=== PATIENT | male | born 1950 | race African-American/Black ===

== ENCOUNTER 2019-02-07 12:05 | Emergency (ER) | payer BC, OTHER ==
[2019-02-07 12:16] VITALS: TEMP 97.9; BMI 30.2
[2019-02-07 14:31] LABS: EOS % 1.9 % (0-4.5); HEMATOCRIT 44.1 % (35.4-49); HEMOGLOBIN 14.6 GM/dL (11.7-16.9); LYMPH % 14.5 % (8-40); MCH 30.4 pg (25.7-33.7); MCHC 33.2 g/dl (32.0-35.9); MEAN CELL VOLUME 91.4 fl (80-96); MEAN PLT VOLUME 7.5 fl (7.5-11.1); MONO % 9.2 % (3.8-10.2); NEUT % 73.4 % (42.8-82.8); PLATELET COUNT 346 K/MM3 (134-434); RBC 4.82 M/mm3 (4.00-5.60); RDW 12.8 % (11.9-15.9); WHITE BLOOD COUNT 10.8 K/mm3 (4.0-10.0)
[2019-02-07 14:42] LABS: EPI CELLS 1.1 /HPF (0-5/HPF); HYALINE CASTS 6 /lpf (0-8); URINE APPEARANCE CLEAR; URINE BILIRUBIN NEGATIVE (NEGATIVE); URINE COLOR YELLOW; URINE GLUCOSE (UA) NEGATIVE (NEGATIVE); URINE KETONE TRACE (NEGATIVE); URINE LEUK ESTERASE NEGATIVE (NEGATIVE); URINE NITRITE NEGATIVE (NEGATIVE); URINE PROTEIN NEGATIVE (NEGATIVE); URINE RBC 2 /hpf (0-4); URINE UROBILINOGEN 0.2 mg/dL (0.2-1.0); URINE WBC 3 /hpf (0-5)
[2019-02-07 15:00] LABS: ALBUMIN 3.6 g/dl (3.4-5.0); BILIRUBIN,TOTAL 0.4 mg/dL (0.2-1); BLOOD UREA NITROGEN 11.5 mg/dL (7-18); CALCIUM 9.1 mg/dL (8.5-10.1); CREATININE 1.3 mg/dL (0.55-1.3); POTASSIUM 4.5 mmol/L (3.5-5.1); TOT PROT 7.8 g/dl (6.4-8.2)
--- NOTE | 2019-02-07 15:22 | PDOC ---
History of Present Illness - General Chief Complaint: Diarrhea Stated Complaint: DIARRHEA Time Seen by Provider: 02/07/19 13:37 History Source: Patient Exam Limitations: No Limitations - History of Present Illness Travel History: No Initial Comments: 02/07/19 15:06 68-year-old male presents to ED with intermittent diarrhea for the past 2 weeks without aggravating factors including activity or diet. Patient states has had mild intermittent lower abdominal cramping but denies any GI history including colitis, diverticulitis IBS. Patient denies recent travel recent illness fever, chills, nausea, abdominal distention, or change in urine pattern. Timing/Duration: reports: intermittent Quality: reports: mild, cramping Abdominal Pain Onset Location: reports: RLQ, LLQ Pain Radiation: reports: no radiation Aggravating Factors: improves with: None Alleviating Factors: improves with: None Past History - Travel Traveled outside of the country in the last 30 days: No Close contact w/someone who was outside of country & ill: No - Past Medical History Allergies/Adverse Reactions: Allergies Allergy/AdvReac Type Severity Reaction Status Date / Time No Known Allergies Allergy Verified 02/07/19 12:12 Home Medications: Ambulatory Orders NK [No Known Home Medication] 02/07/19 COPD: No - Surgical History Abdominal Surgery: Yes (hernia repair) - Suicide/Smoking/Psychosocial Hx Smoking History: Never smoked Patient Lives Alone: No Lives with/in: spouse/SO Review of Systems - Review of Systems Able to Perform ROS?: No Constitutional: No: Symptoms Reported HEENTM: No: Symptoms Reported Respiratory: No: Symptoms reported Cardiac (ROS): No: Symptoms Reported ABD/GI: Yes: Diarrhea, Abdominal cramping. No: Constipated, Nausea, Poor Appetite, Poor Fluid Intake, Vomiting : No: Symptoms Reported Musculoskeletal: No: Symptoms Reported Integumentary: No: Symptoms Reported Neurological: No: Symptoms reported Hematologic/Lymphatic: No: Symptoms Reported *Physical Exam - Vital Signs Last Vital Signs Temp Pulse Resp BP Pulse Ox 97.9 F 89 18 131/77 98 02/07/19 12:14 02/07/19 12:14 02/07/19 12:14 02/07/19 12:14 02/07/19 12:14 - Physical Exam General Appearance: Yes: Nourished, Appropriately Dressed. No: Apparent Distress HEENT: negative: Pale Conjunctivae Neck: positive: Normal Thyroid, Supple Respiratory/Chest: positive: Lungs Clear, Normal Breath Sounds. negative: Respiratory Distress, Accessory Muscle Use Cardiovascular: positive: Regular Rhythm, Regular Rate. negative: Murmur Gastrointestinal/Abdominal: positive: Soft. negative: Tenderness Musculoskeletal: negative: CVA Tenderness Extremity: positive: Normal Inspection Integumentary: positive: Normal Color, Warm, Moist Neurologic: positive: Motor Strength 5/5 (ambulatory) ED Treatment Course - LABORATORY CBC & Chemistry Diagram: 02/07/19 14:15 02/07/19 14:15 - ADDITIONAL ORDERS Additional order review: Laboratory Results 02/07/19 02/07/19 02/07/19 14:15 14:15 14:15 Sodium 139 Potassium 4.5 Chloride 108 H Carbon Dioxide 26 Anion Gap 5 L BUN 11.5 Creatinine 1.3 Est GFR (CKD-EPI)AfAm 64.98 Est GFR (CKD-EPI)NonAf 56.06 Random Glucose 93 Calcium 9.1 Magnesium 2.2 Total Bilirubin 0.4 AST 14 L ALT 15 Alkaline Phosphatase 73 Total Protein 7.8 Albumin 3.6 Urine Color Yellow Urine Appearance Clear Urine pH 5.0 Ur Specific [place] 1.023 Urine Protein Negative Urine Glucose (UA) Negative Urine Ketones Trace H Urine Blood Trace Urine Nitrite Negative Urine Bilirubin Negative Urine Urobilinogen 0.2 Ur Leukocyte Esterase Negative Urine WBC (Auto) 3 Urine RBC (Auto) 2 Urine Casts (Auto) 6 U Epithel Cells (Auto) 1.1 Urine Bacteria (Auto) 1.0 02/07/19 14:15 RBC 4.82 MCV 91.4 MCHC 33.2 RDW 12.8 MPV 7.5 Neutrophils % 73.4 Lymphocytes % 14.5 Monocytes % 9.2 Eosinophils % 1.9 Basophils % 1.0 - RADIOLOGY Radiology Studies Ordered: Category Date Time Status ABDOMEN & PELVIS CT WITH CONTR [CT] Stat CT Scan 02/07/19 13:39 Ordered Medical Decision Making - Medical Decision Making 02/07/19 15:38 Complaint: Intermittent diarrhea for the past 2 weeks fever, chills decreased urine output, weakness Exam: Vital signs stable, no abdominal tenderness no distention Plan: Labs, urine, and abdominal/pelvic CT with contrast. States last episode of diarrhea was this morning but will try to obtain stool specimen 02/07/19 18:18 Laboratory Tests 02/07/19 02/07/19 02/07/19 14:15 14:15 14:15 WBC 10.8 H Hgb 14.6 Hct 44.1 Absolute Neuts (auto) 7.9 Sodium 139 Potassium 4.5 Chloride 108 H Carbon Dioxide 26 Anion Gap 5 L BUN 11.5 Creatinine 1.3 Urine Protein Negative Urine Glucose (UA) Negative Urine Blood Trace Urine Nitrite Negative Urine Bilirubin Negative Ur Leukocyte Esterase Negative Urine WBC (Auto) 3 Urine RBC (Auto) 2 patient unable to give stool specimens. Patient CT shows a left inguinal hernia containing fat only. Otherwise mild colonic diverticulosis without definitive evidence of diverticulitis. Patient recommended to follow up with GI for possible colonoscopy *DC/Admit/Observation/Transfer Diagnosis at time of Disposition: Diarrhea - Discharge Dispostion Disposition: HOME Condition at time of disposition: Good - Referrals Referrals: Micah Simmons DO [Staff Physician] - - Patient Instructions Printed Discharge Instructions: DI for Diarrhea and Traveler's Diarrhea -- Adult Additional Instructions: Try to eat foods that are binding such as starchy foods potatoes rice breads and avoid Green leafy vegetables and things that cause loose stool. Return to ED if he develops severe abdominal pain, fever, or frequent diarrhea or bloody stools. - Post Discharge Activity
[2019-02-07 18:39] VITALS: BP 142/79; PULSE 82
== END 2019-02-07 18:42 | disposition home or self-care (01) ==
LOC: JER 12:05
DX: R19.7 Diarrhea, unspecified (principal)
CPT/HCPCS: 36415; 74177-TC; 80053; 81003; 83735; 85025; 99283-25

== ENCOUNTER 2021-02-01 10:00 | Emergency (ER) | payer OTHER, BC ==
[2021-02-01 10:10] VITALS: BP 144/93; PULSE 96; TEMP 98.1; BMI 29.9
[2021-02-01] MEDS ORDERED: NAPROXEN 500 MG TABLET PO ONE (10:55)
[2021-02-01] MEDS ORDERED: COLCHICINE 0.6 MG CAP PO ONE (10:55)
[2021-02-01] MEDS ORDERED: NAPROXEN 500 MG TABLET ONE (11:47)
== END 2021-02-01 12:44 | disposition home or self-care (01) ==
LOC: JER 10:00
DX: M25.532 Pain in left wrist (principal)
CPT/HCPCS: 73110-TC-LT-FY; 99283-25

== ENCOUNTER 2022-09-29 10:55 | Day surgery (SDC) | payer OTHER, BC ==
[~2022-09-29 10:55] MED LIST: SODIUM CHLORIDE 1,000 ML IV ONE
[2022-09-29] MEDS ORDERED: DEXAMETHASONE SODIUM PHOSPHATE 10 MG in SODIUM CHLORIDE 50 ML IVPB ONE (11:30)
[2022-09-29] MEDS ORDERED: PALONOSETRON HCL 0.25 MG/5 ML VIAL IVPUSH ONE (11:30)
[2022-09-29] MEDS ORDERED: FOSAPREPITANT DIMEGLUMINE 150 MG in SODIUM CHLORIDE 145 ML IVPB ONE (11:30)
[2022-09-29] MEDS ORDERED: MAGNESIUM SULFATE IV ONE ×2 (12:00→14:45)
[2022-09-29] MEDS ORDERED: MANNITOL IV ONE (12:00)
[2022-09-29] MEDS ORDERED: CISPLATIN IV ONE ×2 (12:00→14:45)
[2022-09-29] MEDS ORDERED: [UNRECOGNIZED DRUG - OTHER] IV ONE (12:00)
[2022-09-29] MEDS ORDERED: POTASSIUM CHLORIDE 10 MEQ, MAGNESIUM SULFATE 1 GM in SODIUM CHLORIDE 1,000 ML IVPB ONE (14:00)
[2022-09-29] MEDS ORDERED: [UNRECOGNIZED DRUG - OTHER] IV ONE (14:45)
[2022-09-29] MEDS ORDERED: POTASSIUM CHLORIDE IV ONE (14:45)
[2022-09-29] MEDS ORDERED: MANNITOL IVPB ONE ×2 (14:45)
[2022-09-29 15:03] LABS: BASO % 0.4 % (0-2.0); EOS % 2.6 % (0-4.5); HEMATOCRIT 32.1 % (35.4-49); HEMOGLOBIN 10.6 GM/dL (11.7-16.9); LYMPH % 13.3 % (8-40); MCH 28.7 pg (25.7-33.7); MCHC 32.9 g/dl (32.0-35.9); MEAN CELL VOLUME 87.1 fl (80-96); MEAN PLT VOLUME 9.6 fl (7.5-11.1); MONO % 6.6 % (3.8-10.2); NEUT % 77.1 % (42.8-82.8); PLATELET COUNT 215 10^3/uL (134-434); RBC 3.68 M/mm3 (4.00-5.60); RDW 12.5 % (11.9-15.9); WHITE BLOOD COUNT 8.2 K/mm3 (4.0-10.0)
[2022-09-29 16:09] LABS: CALCIUM 8.8 mg/dL (8.5-10.1)
[2022-09-29 16:10] LABS: ALBUMIN 3.1 g/dl (3.4-5.0); BLOOD UREA NITROGEN 20.4 mg/dL (7-18); MAGNESIUM 2.2 mg/dL (1.8-2.4)
[2022-09-29 16:13] LABS: CREATININE 0.8 mg/dL (0.55-1.3)
[2022-09-29 16:14] LABS: TOT PROT 6.8 g/dl (6.4-8.2)
[2022-09-29 16:15] LABS: BILIRUBIN,TOTAL 0.3 mg/dL (0.2-1)
[2022-09-29 16:52] VITALS: TEMP 98
[2022-09-29 19:42] VITALS: BP 140/73; PULSE 96; RESP 18
== END 2022-09-29 19:48 | disposition home or self-care (01) ==
LOC: JONCCHEMO 10:55
PROVIDERS: ATTEND Internal Medicine Hematology & Oncology
DX: Z51.11 Encounter for antineoplastic chemotherapy (principal); C13.9 Malignant neoplasm of hypopharynx, unspecified; Z87.891 Personal history of nicotine dependence
CPT/HCPCS: 36415; 80053; 83735; 85025; 96360; 96365; 96368; 96375; 96413; J1453; J2469

== ENCOUNTER 2022-09-30 11:30 | Day surgery (SDC) | payer OTHER, BC ==
[2022-09-30] MEDS ORDERED: SODIUM CHLORIDE 0.9%/KCL 20 MEQ/1,000 ML INFUS.BAG IV ONE (11:45)
[2022-09-30] MEDS ORDERED: MAGNESIUM 1GM/D5W - 1 GM/100 ML IVPB IVPB ONE (11:45)
[2022-09-30 16:22] VITALS: BP 120/62; PULSE 82; RESP 19; TEMP 98
== END 2022-09-30 15:00 | disposition home or self-care (01) ==
LOC: JONCCHEMO 11:30
PROVIDERS: ATTEND Internal Medicine Hematology & Oncology
PROC: 3E0337Z Introduction of Electrolytic and Water Balance Substance into Peripheral Vein, Percutaneous Approach (ICD-10-PCS; principal; 2022-09-30)
DX: C13.9 Malignant neoplasm of hypopharynx, unspecified (principal); Z76.89 Persons encountering health services in other specified circumstances
CPT/HCPCS: 96365; 96368

== ENCOUNTER 2022-10-01 11:45 | Day surgery (SDC) | payer OTHER, BC ==
[~2022-10-01 11:45] MED LIST changes: +MAGNESIUM 1GM/D5W - 1 GM/100 ML IVPB IVPB ONE; +SODIUM CHLORIDE 0.9%/KCL 20 MEQ/1,000 ML INFUS.BAG IV ONE; -SODIUM CHLORIDE 1,000 ML IV ONE
[2022-10-01 15:13] VITALS: PULSE 78; RESP 18; TEMP 98
[2022-10-01 15:21] VITALS: BP 113/60
== END 2022-10-01 14:15 | disposition home or self-care (01) ==
LOC: JONCCHEMO 11:45
PROVIDERS: ATTEND Internal Medicine Hematology & Oncology
PROC: 3E033GC Introduction of Other Therapeutic Substance into Peripheral Vein, Percutaneous Approach (ICD-10-PCS; principal; 2022-10-01)
DX: C13.9 Malignant neoplasm of hypopharynx, unspecified (principal); Z76.89 Persons encountering health services in other specified circumstances
CPT/HCPCS: 96365

== ENCOUNTER 2022-10-20 09:50 | Day surgery (SDC) | payer OTHER, BC ==
[~2022-10-20 09:50] MED LIST changes: -MAGNESIUM 1GM/D5W - 1 GM/100 ML IVPB IVPB ONE; -SODIUM CHLORIDE 0.9%/KCL 20 MEQ/1,000 ML INFUS.BAG IV ONE; +SODIUM CHLORIDE 1,000 ML IV ONE
[2022-10-20] MEDS ORDERED: PALONOSETRON HCL 0.25 MG/5 ML VIAL IVPUSH ONE (10:00)
[2022-10-20] MEDS ORDERED: FOSAPREPITANT DIMEGLUMINE 150 MG in SODIUM CHLORIDE 145 ML IVPB ONE (10:00)
[2022-10-20] MEDS ORDERED: DEXAMETHASONE SODIUM PHOSPHATE 10 MG in SODIUM CHLORIDE 50 ML IVPB ONE (10:00)
[2022-10-20] MEDS ORDERED: MAGNESIUM SULFATE IV ONE (10:30)
[2022-10-20] MEDS ORDERED: [UNRECOGNIZED DRUG - OTHER] IV ONE (10:30)
[2022-10-20] MEDS ORDERED: MANNITOL IV ONE (10:30)
[2022-10-20] MEDS ORDERED: CISPLATIN IV ONE (10:30)
[2022-10-20 11:04] LABS: BASO % 0.5 % (0-2.0); EOS % 2.8 % (0-4.5); HEMATOCRIT 31.6 % (35.4-49); HEMOGLOBIN 10.7 GM/dL (11.7-16.9); LYMPH % 11.9 % (8-40); MCH 29.8 pg (25.7-33.7); MCHC 33.9 g/dl (32.0-35.9); MEAN PLT VOLUME 8.1 fl (7.5-11.1); MONO % 15.2 % (3.8-10.2); NEUT % 69.6 % (42.8-82.8); PLATELET COUNT 322 10^3/uL (134-434); RBC 3.59 M/mm3 (4.00-5.60); RDW 13.1 % (11.9-15.9); WHITE BLOOD COUNT 3.1 K/mm3 (4.0-10.0)
[2022-10-20] MEDS ORDERED: POTASSIUM CHLORIDE 10 MEQ, MAGNESIUM SULFATE 1 GM in SODIUM CHLORIDE 1,000 ML IVPB ONE (11:30)
[2022-10-20 11:34] LABS: CALCIUM 9.6 mg/dL (8.5-10.1)
[2022-10-20 11:35] LABS: ALBUMIN 3.6 g/dl (3.4-5.0); BLOOD UREA NITROGEN 15.9 mg/dL (7-18); MAGNESIUM 2.1 mg/dL (1.8-2.4)
[2022-10-20 11:37] LABS: BILIRUBIN,DIRECT 0.1 mg/dL (0.0-0.2)
[2022-10-20 11:38] LABS: CREATININE 0.9 mg/dL (0.55-1.3)
[2022-10-20 11:39] LABS: BILIRUBIN,TOTAL 0.3 mg/dL (0.2-1); TOT PROT 7.6 g/dl (6.4-8.2)
[2022-10-20 17:42] VITALS: TEMP 98.5
[2022-10-20 17:54] VITALS: BP 138/76; PULSE 55; RESP 18
== END 2022-10-20 17:57 | disposition home or self-care (01) ==
LOC: JONCCHEMO 09:50
PROVIDERS: ATTEND Internal Medicine Hematology & Oncology
DX: Z51.11 Encounter for antineoplastic chemotherapy (principal); C13.9 Malignant neoplasm of hypopharynx, unspecified
CPT/HCPCS: 36415; 80048; 80076; 83735; 85025; 96361; 96367; 96375; 96413; J1453; J2469

== ENCOUNTER 2022-10-21 09:34 | Day surgery (SDC) | payer OTHER, BC ==
[2022-10-21] MEDS ORDERED: SODIUM CHLORIDE 0.9%/KCL 20 MEQ/1,000 ML INFUS.BAG IV ONE (10:00)
[2022-10-21] MEDS ORDERED: MAGNESIUM 1GM/D5W - 1 GM/100 ML IVPB IVPB ONE (10:00)
[2022-10-21 16:20] VITALS: BP 119/61; PULSE 87; RESP 19; TEMP 98.5
== END 2022-10-21 11:00 | disposition home or self-care (01) ==
LOC: JONCCHEMO 09:34
PROVIDERS: ATTEND Internal Medicine Hematology & Oncology
PROC: 3E033GC Introduction of Other Therapeutic Substance into Peripheral Vein, Percutaneous Approach (ICD-10-PCS; principal; 2022-10-21)
DX: C13.9 Malignant neoplasm of hypopharynx, unspecified (principal); Z76.89 Persons encountering health services in other specified circumstances
CPT/HCPCS: 96365

== ENCOUNTER 2022-10-22 10:00 | Day surgery (SDC) | payer OTHER, BC ==
[~2022-10-22 10:00] MED LIST changes: +MAGNESIUM 1GM/D5W - 1 GM/100 ML IVPB IVPB ONE; +SODIUM CHLORIDE 0.9%/KCL 20 MEQ/1,000 ML INFUS.BAG IV ONE; -SODIUM CHLORIDE 1,000 ML IV ONE
[2022-10-22 16:20] VITALS: RESP 20; TEMP 98.1
[2022-10-22 16:24] VITALS: BP 118/69; PULSE 74
== END 2022-10-22 12:45 | disposition home or self-care (01) ==
LOC: JONCCHEMO 10:00
PROVIDERS: ATTEND Internal Medicine Hematology & Oncology
PROC: 02B Heart and Great Vessels, Excision (ICD-10-PCS; principal; 2022-10-22)
DX: C13.9 Malignant neoplasm of hypopharynx, unspecified (principal); Z76.89 Persons encountering health services in other specified circumstances
CPT/HCPCS: 96361; 96365

== ENCOUNTER 2022-11-05 11:34 | Day surgery (SDC) | payer OTHER, BC ==
[~2022-11-05 11:34] MED LIST changes: +DEXAMETHASONE SOD PHOSPHATE 4 MG/1 ML VIAL IVPB ONE; +ONDANSETRON 4 MG/2 ML VIAL IVPB ONE; -SODIUM CHLORIDE 0.9%/KCL 20 MEQ/1,000 ML INFUS.BAG IV ONE
[2022-11-05 12:23] LABS: BASO % 0.4 % (0-2.0); HEMATOCRIT 29.5 % (35.4-49); HEMOGLOBIN 10.1 GM/dL (11.7-16.9); LYMPH % 9.9 % (8-40); MCHC 34.3 g/dl (32.0-35.9); MEAN CELL VOLUME 87.4 fl (80-96); MEAN PLT VOLUME 7.7 fl (7.5-11.1); NEUT % 81.7 % (42.8-82.8); PLATELET COUNT 182 10^3/uL (134-434); RBC 3.38 M/mm3 (4.00-5.60); RDW 13.6 % (11.9-15.9); WHITE BLOOD COUNT 3.6 K/mm3 (4.0-10.0)
[2022-11-05] MEDS ORDERED: NORMAL SALINE IV ONE (12:30)
[2022-11-05] MEDS ORDERED: DEXTROSE 5% IV ONE (12:30)
[2022-11-05 13:26] LABS: MAGNESIUM 2.2 mg/dL (1.8-2.4)
[2022-11-05 13:28] LABS: ALBUMIN 3.6 g/dl (3.4-5.0); BLOOD UREA NITROGEN 18.2 mg/dL (7-18); CALCIUM 9.2 mg/dL (8.5-10.1)
[2022-11-05 13:30] LABS: BILIRUBIN,DIRECT 0.1 mg/dL (0.0-0.2)
[2022-11-05 13:31] LABS: TOT PROT 7.8 g/dl (6.4-8.2)
[2022-11-05 13:33] LABS: BILIRUBIN,TOTAL 0.3 mg/dL (0.2-1)
[2022-11-05] MEDS ORDERED: ACETAMINOPHEN 650 MG/20.3 ML ORAL SOLUTION (CUPS) PO ONE (16:29)
[2022-11-05 17:19] VITALS: TEMP 98.6
[2022-11-05 17:30] VITALS: BP 141/76; PULSE 89; RESP 18
== END 2022-11-05 16:20 | disposition home or self-care (01) ==
LOC: JONCNONCHE 11:34
PROVIDERS: ATTEND Internal Medicine Hematology & Oncology
PROC: 3E033GC Introduction of Other Therapeutic Substance into Peripheral Vein, Percutaneous Approach (ICD-10-PCS; principal; 2022-11-05)
DX: C13.9 Malignant neoplasm of hypopharynx, unspecified (principal); Z76.89 Persons encountering health services in other specified circumstances
CPT/HCPCS: 36415; 80048; 80076; 82150; 83690; 83735; 85025; 96361; 96365

== ENCOUNTER 2022-11-09 21:20 | Inpatient (IN) | payer OTHER, BC ==
[2022-11-09 21:28] VITALS: BMI 29.5
[2022-11-09] MEDS ORDERED: SODIUM CHLORIDE 2,722 ML IV ONE (21:45)
[2022-11-09] MEDS ORDERED: ACETAMINOPHEN 1000 MG/100 ML BAG IVPB ONE (21:47)
[2022-11-09 22:32] LABS: VENOUS BASE EXCESS 2.2 mmol/L (-2-2); VENOUS PCO2 41.9 mmHg (38-52); VENOUS PH 7.424 (7.310-7.410)
[2022-11-09] MEDS ORDERED: ACETAMINOPHEN INJECTION 100 ML IVPB ONE (22:32)
[2022-11-09 22:45] LABS: BASO % 0.3 % (0-2.0); EOS % 3.1 % (0-4.5); HEMATOCRIT 26.4 % (35.4-49); HEMOGLOBIN 9.2 GM/dL (11.7-16.9); INR 1.14 (0.83-1.09); LYMPH % 17.4 % (8-40); MCH 30.3 pg (25.7-33.7); MCHC 34.9 g/dl (32.0-35.9); MEAN CELL VOLUME 86.8 fl (80-96); MEAN PLT VOLUME 7.2 fl (7.5-11.1); MONO % 23.8 % (3.8-10.2); NEUT % 55.4 % (42.8-82.8); PLATELET COUNT 264 10^3/uL (134-434); PROTHROMBIN TIME (PATIENT) 13.2 SEC (9.7-13.0); RBC 3.05 M/mm3 (4.00-5.60); RDW 14.2 % (11.9-15.9)
[2022-11-09 22:47] LABS: ACTIVATED PTT 29.5 SECONDS (25.2-36.5)
[2022-11-09 22:49] LABS: WHITE BLOOD COUNT 0.8 K/mm3 (4.0-10.0)
[2022-11-09 22:54] LABS: CHLORIDE 96 mmol/L (98-107); POTASSIUM 4.5 mmol/L (3.5-5.1); SODIUM 131 mmol/L (136-145)
[2022-11-09 22:56] LABS: ALBUMIN 3.3 g/dl (3.4-5.0); ANION GAP 6 MMOL/L (8-16); CALCIUM 8.5 mg/dL (8.5-10.1); CO2 28 mmol/L (21-32); GLUCOSE,RANDOM 148 mg/dL (74-106)
[2022-11-09 22:59] LABS: CREATININE 0.9 mg/dL (0.55-1.3); SGOT/AST 17 U/L (15-37)
[2022-11-09 23:00] LABS: SGPT/ALT 24 U/L (13-61)
[2022-11-09 23:01] LABS: BILIRUBIN,TOTAL 0.3 mg/dL (0.2-1); TOT PROT 7.3 g/dl (6.4-8.2)
[2022-11-09 23:02] LABS: ALK PHOS 55 U/L (45-117)
[2022-11-09] MEDS ORDERED: PIPERACILLIN/TAZOB 3.375 GM 3.375 GM in DEXTROSE 5%-WATER - 50 ML IVPB ONE (23:08)
[2022-11-09] MEDS ORDERED: VANCOMYCIN 1 GM in D5W (PRE-DOCKED) 1,000 MG/250 ML (RESTRICTED TO ID ONLY IVPB ONE (23:08)
[2022-11-09] MEDS ORDERED: PIPERACILLIN/TAZOB 3.375 GM 3.375 GM/50 ML BAG IVPB ONE (23:32)
[2022-11-09 23:56] LABS: PH,URINE 7.5 (5.0-8.0); URINE APPEARANCE CLEAR; URINE BILIRUBIN NEGATIVE (NEGATIVE); URINE COLOR YELLOW; URINE GLUCOSE (UA) NEGATIVE (NEGATIVE); URINE KETONE NEGATIVE (NEGATIVE); URINE LEUK ESTERASE NEGATIVE (NEGATIVE); URINE NITRITE NEGATIVE (NEGATIVE); URINE PROTEIN NEGATIVE (NEGATIVE); URINE UROBILINOGEN 0.2 mg/dL (0.2-1.0)
[2022-11-10] MEDS ORDERED: ONDANSETRON 4 MG/2 ML VIAL IVPUSH PRN (00:04)
[2022-11-10 01:06] LABS: HEMATOCRIT 24.7 % (35.4-49); HEMOGLOBIN 8.4 GM/dL (11.7-16.9); MCH 29.9 pg (25.7-33.7); MCHC 34.2 g/dl (32.0-35.9); MEAN CELL VOLUME 87.4 fl (80-96); MEAN PLT VOLUME 7.3 fl (7.5-11.1); PLATELET COUNT 245 10^3/uL (134-434); RBC 2.83 M/mm3 (4.00-5.60)
[2022-11-10] MEDS: SODIUM CHLORIDE 1,000 ML IV SCH (01:16)
[2022-11-10] MEDS ORDERED: VANCOMYCIN/WATER FOR INJ (PEG) 1,000 MG/200 ML BAG IVPB ONE (01:19)
[2022-11-10] MEDS ORDERED: PIPERACILLIN/TAZOB 3.375 GM 3.375 GM in DEXTROSE 5%-WATER - 50 ML IVPB SCH (02:00)
[2022-11-10 02:59] LABS: ANISOCYTOSIS 1+; MACROCYTOSIS 0
[2022-11-10 06:37] LABS: POTASSIUM 4.7 mmol/L (3.5-5.1)
[2022-11-10] MEDS ORDERED: ACETAMINOPHEN INJECTION 100 ML IVPB ONE (06:38)
[2022-11-10 06:39] LABS: ALBUMIN 2.8 g/dl (3.4-5.0); BLOOD UREA NITROGEN 12.9 mg/dL (7-18); CALCIUM 8.3 mg/dL (8.5-10.1)
[2022-11-10 06:42] LABS: CREATININE 0.9 mg/dL (0.55-1.3); URIC ACID 2.8 mg/dL (2.6-7.2)
[2022-11-10] MEDS: ACETAMINOPHEN 1000 MG/100 ML BAG IVPB PRN (06:42)
[2022-11-10 06:44] LABS: BILIRUBIN,TOTAL 0.4 mg/dL (0.2-1); TOT PROT 6.6 g/dl (6.4-8.2)
[2022-11-10 07:16] LABS: HEMATOCRIT 25.2 % (35.4-49); HEMOGLOBIN 8.6 GM/dL (11.7-16.9); MCH 29.8 pg (25.7-33.7); MCHC 34.1 g/dl (32.0-35.9); MEAN CELL VOLUME 87.5 fl (80-96); MEAN PLT VOLUME 7.4 fl (7.5-11.1); PLATELET COUNT 250 10^3/uL (134-434); RBC 2.89 M/mm3 (4.00-5.60); RDW 14.7 % (11.9-15.9); RETICULOCYTES 1.27 % (0.5-1.5)
[2022-11-10] MEDS ORDERED: PIPERACILLIN/TAZOB 4.5 GM 4.5 GM/100 ML BAG IVPB ONE (07:48)
[2022-11-10] MEDS ORDERED: PIPERACILLIN/TAZOB 4.5 GM 4.5 GM in DEXTROSE 5%-WATER 100 ML IVPB SCH (08:00)
[2022-11-10 08:48] LABS: ANISOCYTOSIS 2+; MACROCYTOSIS 0
[2022-11-10] MEDS ORDERED: ENOXAPARIN NA (PORCINE) 40 MG/0.4 ML DISP.SYRIN SQ SCH (10:00)
[2022-11-10] MEDS: PIPERACILLIN/TAZOB 4.5 GM 4.5 GM in DEXTROSE 5%-WATER 100 ML IVPB SCH (17:26)
[2022-11-10] MEDS: VANCOMYCIN/WATER FOR INJ (PEG) 1,000 MG/200 ML BAG IVPB SCH (17:26)
[2022-11-11] MEDS: SODIUM CHLORIDE 1,000 ML IV SCH (00:03)
[2022-11-11] MEDS: PIPERACILLIN/TAZOB 4.5 GM 4.5 GM in DEXTROSE 5%-WATER 100 ML IVPB SCH ×3 (01:33→17:08)
[2022-11-11] MEDS: VANCOMYCIN/WATER FOR INJ (PEG) 1,000 MG/200 ML BAG IVPB SCH ×2 (05:31→17:43)
[2022-11-11 10:01] LABS: HEMATOCRIT 25.5 % (35.4-49); HEMOGLOBIN 8.7 GM/dL (11.7-16.9); MCH 29.8 pg (25.7-33.7); MCHC 34.1 g/dl (32.0-35.9); MEAN CELL VOLUME 87.5 fl (80-96); MEAN PLT VOLUME 7.3 fl (7.5-11.1); PLATELET COUNT 284 10^3/uL (134-434); RBC 2.91 M/mm3 (4.00-5.60); RDW 14.6 % (11.9-15.9)
[2022-11-11 10:11] LABS: WHITE BLOOD COUNT 1.4 K/mm3 (4.0-10.0)
[2022-11-11 10:14] LABS: POTASSIUM 4.4 mmol/L (3.5-5.1)
[2022-11-11 10:15] LABS: CALCIUM 8.5 mg/dL (8.5-10.1)
[2022-11-11 10:16] LABS: BLOOD UREA NITROGEN 12.3 mg/dL (7-18); MAGNESIUM 1.9 mg/dL (1.8-2.4)
[2022-11-11 10:19] LABS: CREATININE 0.8 mg/dL (0.55-1.3)
[2022-11-11 10:34] LABS: ANISOCYTOSIS 2+; MACROCYTOSIS 0
[2022-11-11] MEDS ORDERED: ONDANSETRON HCL 4 MG/5 ML BULK BOTTLE PO PRN (16:05)
[2022-11-11] MEDS ORDERED: TRAMADOL HCL PO SCH (18:00)
[2022-11-12] MEDS: PIPERACILLIN/TAZOB 4.5 GM 4.5 GM in DEXTROSE 5%-WATER 100 ML IVPB SCH ×3 (01:20→17:12)
[2022-11-12] MEDS: VANCOMYCIN/WATER FOR INJ (PEG) 1,000 MG/200 ML BAG IVPB SCH ×2 (04:54→17:12)
[2022-11-12 05:47] VITALS: RESP 18
[2022-11-12 08:55] LABS: HEMATOCRIT 26.8 % (35.4-49); HEMOGLOBIN 9.1 GM/dL (11.7-16.9); MCH 29.9 pg (25.7-33.7); MCHC 34.1 g/dl (32.0-35.9); MEAN CELL VOLUME 87.8 fl (80-96); MEAN PLT VOLUME 7.1 fl (7.5-11.1); PLATELET COUNT 323 10^3/uL (134-434); RBC 3.05 M/mm3 (4.00-5.60); RDW 15.2 % (11.9-15.9)
[2022-11-12 09:12] LABS: WHITE BLOOD COUNT 1.4 K/mm3 (4.0-10.0)
[2022-11-12 09:14] LABS: POTASSIUM 4.5 mmol/L (3.5-5.1)
[2022-11-12 09:16] LABS: BLOOD UREA NITROGEN 17.4 mg/dL (7-18)
[2022-11-12 09:19] LABS: CREATININE 0.9 mg/dL (0.55-1.3); PHOSPHOROUS 5.1 mg/dL (2.5-4.9)
[2022-11-12] MEDS: MAGNESIUM OXIDE 400 MG TABLET (FP) PO SCH (10:27)
[2022-11-12] MEDS: ACETAMINOPHEN 1000 MG/100 ML BAG IVPB PRN (11:42)
[2022-11-12] MEDS ORDERED: PHENOL 177 ML SPRAY BOTTLE MM PRN (16:41)
[2022-11-12] MEDS ORDERED: traMADol HCL 50 MG TABLET PEG PRN (16:41)
[2022-11-13] MEDS: PIPERACILLIN/TAZOB 4.5 GM 4.5 GM in DEXTROSE 5%-WATER 100 ML IVPB SCH ×2 (01:53→10:25)
[2022-11-13] MEDS: VANCOMYCIN/WATER FOR INJ (PEG) 1,000 MG/200 ML BAG IVPB SCH (05:07)
[2022-11-13 08:52] LABS: BASO % 0.2 % (0-2.0); HEMATOCRIT 27.1 % (35.4-49); HEMOGLOBIN 9.6 GM/dL (11.7-16.9); MCH 31.1 pg (25.7-33.7); MCHC 35.4 g/dl (32.0-35.9); MEAN CELL VOLUME 87.7 fl (80-96); MEAN PLT VOLUME 7.8 fl (7.5-11.1); MONO % 12.1 % (3.8-10.2); NEUT % 68.7 % (42.8-82.8); PLATELET COUNT 359 10^3/uL (134-434); RBC 3.09 M/mm3 (4.00-5.60); RDW 15.3 % (11.9-15.9); WHITE BLOOD COUNT 2.1 K/mm3 (4.0-10.0)
[2022-11-13 09:15] LABS: POTASSIUM 4.7 mmol/L (3.5-5.1)
[2022-11-13 09:20] LABS: BLOOD UREA NITROGEN 21.2 mg/dL (7-18); CALCIUM 8.8 mg/dL (8.5-10.1)
[2022-11-13 09:23] LABS: CREATININE 0.9 mg/dL (0.55-1.3); PHOSPHOROUS 4.9 mg/dL (2.5-4.9)
[2022-11-13] MEDS: MAGNESIUM OXIDE 400 MG TABLET (FP) PO SCH (10:25)
[2022-11-13] MEDS: ENOXAPARIN NA (PORCINE) 40 MG/0.4 ML DISP.SYRIN SQ SCH (16:27)
[2022-11-14 05:42] VITALS: BP 118/55; PULSE 84; TEMP 98
[2022-11-14 09:46] LABS: BASO % 0.2 % (0-2.0); HEMATOCRIT 29.2 % (35.4-49); HEMOGLOBIN 9.8 GM/dL (11.7-16.9); LYMPH % 14.2 % (8-40); MCH 29.8 pg (25.7-33.7); MCHC 33.7 g/dl (32.0-35.9); MEAN CELL VOLUME 88.5 fl (80-96); MONO % 10.6 % (3.8-10.2); PLATELET COUNT 390 10^3/uL (134-434); RDW 15.7 % (11.9-15.9); WHITE BLOOD COUNT 2.3 K/mm3 (4.0-10.0)
[2022-11-14] MEDS: ENOXAPARIN NA (PORCINE) 40 MG/0.4 ML DISP.SYRIN SQ SCH (10:05)
[2022-11-14] MEDS: MAGNESIUM OXIDE 400 MG TABLET (FP) PO SCH (10:05)
[2022-11-14 10:08] LABS: POTASSIUM 4.6 mmol/L (3.5-5.1)
[2022-11-14 10:11] LABS: CALCIUM 9.4 mg/dL (8.5-10.1)
[2022-11-14 10:12] LABS: BLOOD UREA NITROGEN 21.6 mg/dL (7-18); MAGNESIUM 2.2 mg/dL (1.8-2.4)
== END 2022-11-14 14:09 | disposition home or self-care (01) | DRG 871 ==
LOC: JER 21:20 → JERBED 23:09 → J6S 11-10 16:28
PROVIDERS: ADMIT Internal Medicine; ATTEND Internal Medicine
DX: A41.9 Sepsis, unspecified organism (principal); J18.9 Pneumonia, unspecified organism; R04.2 Hemoptysis; K92.0 Hematemesis; D70.3 Neutropenia due to infection; C12 Malignant neoplasm of pyriform sinus; Z93.1 Gastrostomy status; R13.10 Dysphagia, unspecified
CPT/HCPCS: 0241U-QW; 36415; 71045-TC-FY; 71260-TC; 74177-TC; 80048; 80053; 81003; 82550; 82553; 82728; 82803; 83036; 83540; 83550; 83605; 83735; 84100; 84484; 84550; 85025; 85027; 85045; 85610; 85651; 85730; 86140; 86850; 86900; 86901; 87040; 87070; 87081; 87086; 87205; 87799; 87899; 93005; 93010; 99285-25; G0480; Q9967

== ENCOUNTER 2022-11-19 09:58 | Day surgery (SDC) | payer OTHER, BC ==
[~2022-11-19 09:58] MED LIST changes: -DEXAMETHASONE SOD PHOSPHATE 4 MG/1 ML VIAL IVPB ONE; -MAGNESIUM 1GM/D5W - 1 GM/100 ML IVPB IVPB ONE; -ONDANSETRON 4 MG/2 ML VIAL IVPB ONE; +SODIUM CHLORIDE 500 ML IV ONE
[2022-11-19] MEDS ORDERED: CISPLATIN IV ONE ×2 (10:15→11:00)
[2022-11-19] MEDS ORDERED: [UNRECOGNIZED DRUG - OTHER] IV ONE (10:15)
[2022-11-19] MEDS ORDERED: MAGNESIUM SULFATE IV ONE ×2 (10:15→11:00)
[2022-11-19] MEDS ORDERED: MANNITOL IV ONE ×2 (10:15→11:00)
[2022-11-19] MEDS ORDERED: DEXAMETHASONE SODIUM PHOSPHATE 10 MG in SODIUM CHLORIDE 50 ML IVPB ONE (10:30)
[2022-11-19] MEDS ORDERED: FOSAPREPITANT DIMEGLUMINE 150 MG in SODIUM CHLORIDE 145 ML IVPB ONE (10:30)
[2022-11-19] MEDS ORDERED: PALONOSETRON HCL 0.25 MG/5 ML VIAL IVPUSH ONE (10:30)
[2022-11-19] MEDS ORDERED: [UNRECOGNIZED DRUG - OTHER] IV ONE (11:00)
[2022-11-19] MEDS ORDERED: MAGNESIUM 1GM/D5W - 1 GM/100 ML IVPB IVPB ONE (12:00)
[2022-11-19] MEDS ORDERED: SODIUM CHLORIDE 750 ML IV ONE (12:00)
[2022-11-19 17:44] VITALS: BP 113/64; PULSE 78; RESP 20; TEMP 98.4
== END 2022-11-19 16:30 | disposition home or self-care (01) ==
LOC: JONCCHEMO 09:58 → J7W 10:03 → JONCCHEMO 16:30
PROVIDERS: ATTEND Internal Medicine Hematology & Oncology
DX: Z51.11 Encounter for antineoplastic chemotherapy (principal); C13.9 Malignant neoplasm of hypopharynx, unspecified
CPT/HCPCS: 96367; 96375; 96413; J1453; J2469

== ENCOUNTER 2022-11-20 10:00 | Day surgery (SDC) | payer OTHER, BC ==
[~2022-11-20 10:00] MED LIST changes: +MAGNESIUM 1GM/D5W - 1 GM/100 ML IVPB IVPB ONE; +SODIUM CHLORIDE 1,000 ML IV ONE; -SODIUM CHLORIDE 500 ML IV ONE
[2022-11-20 17:30] VITALS: BP 121/65; PULSE 79; RESP 18; TEMP 98.1
== END 2022-11-20 13:00 | disposition home or self-care (01) ==
LOC: JONCCHEMO 10:00
PROVIDERS: ATTEND Internal Medicine Hematology & Oncology
PROC: 3E033GC Introduction of Other Therapeutic Substance into Peripheral Vein, Percutaneous Approach (ICD-10-PCS; principal; 2022-11-20)
DX: C13.9 Malignant neoplasm of hypopharynx, unspecified (principal); Z76.89 Persons encountering health services in other specified circumstances
CPT/HCPCS: 96365

== ENCOUNTER 2022-11-21 10:19 | Day surgery (SDC) | payer OTHER, BC ==
[~2022-11-21 10:19] MED LIST changes: +SODIUM CHLORIDE 0.9%/KCL 20 MEQ/1,000 ML INFUS.BAG IV ONE; -SODIUM CHLORIDE 1,000 ML IV ONE; +TBO-FILGRASTIM 480 MCG/0.8 ML DISP.SYRIN SQ ONE
[2022-11-21 17:25] VITALS: RESP 18; TEMP 98.3
[2022-11-21 17:28] VITALS: BP 123/72; PULSE 70
== END 2022-11-21 13:20 | disposition home or self-care (01) ==
LOC: JONCCHEMO 10:19 → J7W 10:20 → JONCCHEMO 13:20
PROVIDERS: ATTEND Internal Medicine Hematology & Oncology
PROC: 3E033GC Introduction of Other Therapeutic Substance into Peripheral Vein, Percutaneous Approach (ICD-10-PCS; principal; 2022-11-21)
PROC: 3E013GC Introduction of Other Therapeutic Substance into Subcutaneous Tissue, Percutaneous Approach (ICD-10-PCS; 2022-11-21)
DX: C13.9 Malignant neoplasm of hypopharynx, unspecified (principal); Z76.89 Persons encountering health services in other specified circumstances
CPT/HCPCS: 96365; 96372; J1447

== ENCOUNTER 2022-11-26 14:00 | Day surgery (SDC) | payer OTHER, BC ==
[~2022-11-26 14:00] MED LIST changes: +D5 NS IV ONE; +D5-NS + 20 MEQ KCL - 20 MEQ/1,000 ML INFUS.BAG IV ONE; +DEXAMETHASONE SODIUM PHOSPHATE 4 MG, ONDANSETRON INJECTION 8 MG in SODIUM CHLORIDE 100 ML IVPB ONE; +KCL IV ONE; +LOPERAMIDE HCL 1 MG/5 ML UNIT DOSE CUP PEG ONE; -MAGNESIUM 1GM/D5W - 1 GM/100 ML IVPB IVPB ONE; +MAGNESIUM SULFATE IN WATER 2 GM/50 ML IVPB IVPB ONE; -SODIUM CHLORIDE 0.9%/KCL 20 MEQ/1,000 ML INFUS.BAG IV ONE; -TBO-FILGRASTIM 480 MCG/0.8 ML DISP.SYRIN SQ ONE
[2022-11-26] MEDS ORDERED: DEXTROSE 5%-NORMAL SALINE 500 ML IV ONE (15:00)
[2022-11-26 15:05] LABS: HEMATOCRIT 25.7 % (35.4-49); MCH 30.8 pg (25.7-33.7); MCHC 35.1 g/dl (32.0-35.9); MEAN CELL VOLUME 87.9 fl (80-96); MEAN PLT VOLUME 8.6 fl (7.5-11.1); PLATELET COUNT 306 10^3/uL (134-434); RBC 2.92 M/mm3 (4.00-5.60); RDW 17.5 % (11.9-15.9); WHITE BLOOD COUNT 8.3 K/mm3 (4.0-10.0)
[2022-11-26 15:31] LABS: POTASSIUM 4.4 mmol/L (3.5-5.1)
[2022-11-26 15:33] LABS: CALCIUM 8.9 mg/dL (8.5-10.1)
[2022-11-26 15:34] LABS: ALBUMIN 3.3 g/dl (3.4-5.0); BLOOD UREA NITROGEN 18.3 mg/dL (7-18); MAGNESIUM 1.9 mg/dL (1.8-2.4)
[2022-11-26 15:36] LABS: BILIRUBIN,DIRECT 0.1 mg/dL (0.0-0.2)
[2022-11-26 15:37] LABS: CREATININE 1.2 mg/dL (0.55-1.3)
[2022-11-26 15:38] LABS: BILIRUBIN,TOTAL 0.3 mg/dL (0.2-1); TOT PROT 6.8 g/dl (6.4-8.2)
[2022-11-26 15:58] LABS: ANISOCYTOSIS 2+; MACROCYTOSIS 0
[2022-11-26 17:55] VITALS: BP 119/66; PULSE 72; RESP 18; TEMP 99
== END 2022-11-26 17:45 | disposition home or self-care (01) ==
LOC: JONCNONCHE 14:00
PROVIDERS: ATTEND Internal Medicine Hematology & Oncology
PROC: 3E0T3GC Introduction of Other Therapeutic Substance into Peripheral Nerves and Plexi, Percutaneous Approach (ICD-10-PCS; principal; 2022-11-26)
DX: C13.9 Malignant neoplasm of hypopharynx, unspecified (principal); Z76.89 Persons encountering health services in other specified circumstances
CPT/HCPCS: 36415; 80048; 80076; 83735; 85025; 96365; 96366; 96368; J2405

== ENCOUNTER 2023-07-15 23:29 | Emergency (ER) | payer OTHER, BC ==
[2023-07-15 23:45] VITALS: BMI 22.6
[2023-07-15] MEDS ORDERED: SODIUM CHLORIDE 0.9% 500 ML INFUS.BAG IV ONE (23:49)
[2023-07-16] MEDS ORDERED: NOREPINEPHRINE BITARTRATE 4 MG/4 ML ML IV ONE (00:39)
[2023-07-16 00:55] LABS: INR 1.26 (0.83-1.09); PROTHROMBIN TIME (PATIENT) 14.6 SEC (9.7-13.0)
[2023-07-16 00:58] LABS: ACTIVATED PTT 29.3 SECONDS (25.2-36.5)
[2023-07-16] MEDS ORDERED: NOREPINEPHRINE BITARTRATE 4,000 MCG in DEXTROSE 5%-WATER - 496 ML IV SCH (01:00)
[2023-07-16] MEDS ORDERED: ETOMIDATE 40 MG/20 ML VIAL IVPUSH ONE ×2 (01:06→01:12)
[2023-07-16] MEDS ORDERED: SUCCINYLCHOLINE CHLORIDE 200 MG/10 ML VIAL IVPUSH ONE (01:06)
[2023-07-16] MEDS ORDERED: SUCCINYLCHOLINE CHLORIDE 200 MG/10 ML VIAL ONE (01:13)
[2023-07-16 01:15] LABS: CHLORIDE 99 mmol/L (98-107); SODIUM 128 mmol/L (136-145)
[2023-07-16 01:16] LABS: EPI CELLS >36 /uL (0-25.1); HYALINE CASTS 8 /uL (0-3.1); PH,URINE 5.5 (5.0-8.0); URINE APPEARANCE TURBID; URINE BACTERIA 4058 /uL (0-1359); URINE BILIRUBIN 1+ (NEGATIVE); URINE COLOR DK YELLOW; URINE GLUCOSE (UA) NEGATIVE (NEGATIVE); URINE KETONE NEGATIVE (NEGATIVE); URINE LEUK ESTERASE TRACE (NEGATIVE); URINE NITRITE NEGATIVE (NEGATIVE); URINE PROTEIN 2+ (NEGATIVE); URINE WBC 60 /uL (0-25.8)
[2023-07-16 01:17] LABS: CO2 23 mmol/L (21-32); MAGNESIUM 2.4 mg/dL (1.8-2.4)
[2023-07-16 01:18] LABS: CALCIUM 7.8 mg/dL (8.5-10.1)
[2023-07-16 01:19] LABS: ALBUMIN 1.7 g/dl (3.4-5.0); BLOOD UREA NITROGEN 40.4 mg/dL (7-18); HEMATOCRIT 21.5 % (35.4-49); HEMOGLOBIN 7.1 GM/dL (11.7-16.9); MCH 27.4 pg (25.7-33.7); MCHC 33.1 g/dl (32.0-35.9); MEAN CELL VOLUME 82.8 fl (80-96); MEAN PLT VOLUME 9.1 fl (7.5-11.1); PLATELET COUNT 167 10^3/uL (134-434); RDW 15.2 % (11.9-15.9)
[2023-07-16 01:20] LABS: GLUCOSE,RANDOM 154 mg/dL (74-106)
[2023-07-16 01:21] LABS: CREATININE 1.5 mg/dL (0.55-1.3); SGOT/AST 159 U/L (15-37); SGPT/ALT 122 U/L (13-61)
[2023-07-16 01:22] LABS: CHOLESTEROL 83 mg/dL (50-200); PHOSPHOROUS 3.3 mg/dL (2.5-4.9); TOT PROT 6.2 g/dl (6.4-8.2)
[2023-07-16 01:23] LABS: BILIRUBIN,TOTAL 2.1 mg/dL (0.2-1); LDL CHOLESTEROL (ONLY SJRH) 45 mg/dL (5-100)
[2023-07-16 01:24] LABS: ALK PHOS 137 U/L (45-117)
[2023-07-16 01:26] LABS: HDL CHOLESTEROL 10 mg/dL (40-60)
[2023-07-16] MEDS ORDERED: MIDAZOLAM HCL 5 MG/1 ML Single Dose Vial IVPUSH ONE (01:41)
[2023-07-16 01:44] VITALS: BP 86/55; PULSE 79
[2023-07-16] MEDS ORDERED: MIDAZOLAM HCL 5 MG/1 ML Single Dose Vial ONE (01:44)
[2023-07-16 01:47] LABS: ANION GAP 6 mmol/L (4-13); POTASSIUM 6.6 mmol/L (3.5-5.1)
[2023-07-16 01:52] LABS: URINE RBC 204.6 /uL (0-23.9)
[2023-07-16] MEDS ORDERED: MIDAZOLAM IN 0.9 % SOD.CHLORID 1 MG/1 ML PLAST..BAG ONE (01:56)
[2023-07-16] MEDS ORDERED: MIDAZOLAM IN 0.9 % SOD.CHLORID 100 MG/100 ML PLAST..BAG IVPB SCH (02:00)
[2023-07-16 02:07] LABS: ANISOCYTOSIS 1+; MACROCYTOSIS 1+; OVALOCYTE 1+; TARGET CELLS 1+
[2023-07-16 02:08] LABS: PLATELET ESTIMATE ADEQUATE
[2023-07-16 02:23] VITALS: RESP 12
[2023-07-16 02:36] LABS: CALCIUM 7.2 mg/dL (8.5-10.1)
[2023-07-16 02:37] LABS: BLOOD UREA NITROGEN 36.3 mg/dL (7-18)
[2023-07-16 02:40] LABS: CREATININE 1.3 mg/dL (0.55-1.3)
== END 2023-07-16 02:28 | disposition short-term general hospital (02) ==
LOC: JER 23:29
PROC: 0BH17EZ Insertion of Endotracheal Airway into Trachea, Via Natural or Artificial Opening (ICD-10-PCS; principal; 2023-07-16)
DX: G83.89 Other specified paralytic syndromes (principal); Z20.822 Contact with and (suspected) exposure to COVID-19
CPT/HCPCS: 0241U-QW; 36415; 70450-TC; 71045-TC-FY; 71250-TC; 72125-TC; 74176-TC; 80048; 80053; 80061; 81003; 82550; 82553; 83036; 83605; 83735; 84100; 84484; 85025; 85610; 85730; 86850; 86900; 86901; 87086; 93005; 93010; 99291